=== PATIENT | female | born 2000 | race African-American/Black ===

== ENCOUNTER 2022-04-13 21:14 | Emergency (ER) | payer MEDICAID ==
[~2022-04-13] VITALS: Ht 165.1 cm; Wt 64.0 kg
[2022-04-13 23:00] VITALS: BP 104/80
[2022-04-13] MEDS ORDERED: LEVETIRACETAM 500MG TABLET PO ONE (23:00)
[2022-04-13] MEDS ORDERED: ARIPIPRAZOLE 5MG TABLET PO ONE (23:00)
[2022-04-13] MEDS ORDERED: CARBAMAZEPINE 200MG TABLET PO ONE (23:00)
== END 2022-04-13 23:10 | disposition home or self-care (01) ==
LOC: ER 21:14
DX: G40.509 Epileptic seizures related to external causes, not intractable, without status epilepticus (principal)
CPT/HCPCS: 99283